=== PATIENT | female | born 1955 | race Caucasian/White ===

== ENCOUNTER → 2016-06-29 | Day surgery (SDC) | payer OTHER ==
[~2016-06-29] MED LIST: ATORVASTATIN CA20 MG PO; CITALOPRAM HYDR10 MG PO; COZAAR50 M1 PO; ECOTRIN81 MG PO; FISH OIL500 MG PO; MULTIVITAMIN1 TAB PO; OMEGA 31000 MG PO
--- NOTE | 2016-06-29 15:03 | Operative Report ---
Operative/Inv Procedure Report Surgery Date: 06/29/16 Name of Procedure: Cystocopy and TURBT Pre-Operative Diagnosis: r/o recurrent bladder tumor Post-Operative Diagnosis: same Estimated Blood Loss: less than 50ml Surgeon/Charge Account Clerk: HANK Montelongo MD,MAGI Booker Anesthesia: general endotracheal tube Drains: 20 fr mathews Specimens: bladder tumor chips Complications: none Condition: stable Operative Indication: Assess for recurrent bladder tumor Operative/Procedure Note Note: The patient was taken to the cystoscopy room and identified. She was placed in supine position on the cystoscopy table. Timeout was executed appropriately with the patient awake. Gen. anesthesia was induced via an endotracheal tube. She was placed in dorsal lithotomy position and bimanual rectal exam revealed no abnormal pelvic masses. She was prepped and draped in usual fashion for cystoscopy. Surgical pause was executed appropriately. The 22 Beninese cystoscope sheath was placed into the bladder and cystoscopy performed. On the right lateral wall that was irregular mucosa. The remainder of the bladder appeared normal. Both ureteral orifices were normal in appearance. The bladder was left full and the cystoscope removed. A 26 Beninese resectoscope sheath was placed in the bladder. The working element was inserted and the irregular mucosa on the right lateral bladder wall was resected completely. The [employer] evacuator was used to remove all bladder tumor chips from the bladder. The base of the resection was fulgurated with electrocautery and no significant bleeding was noted. The bladder was left full and a 20 Beninese two-way Mathesw catheter inserted. Patient tolerated the procedure well and as completion was taken to recovery room in stable condition. Findings: Irregular mucosa on the right lateral bladder wall Discharge Disposition: PACU
== END ==
LOC: STS 00:58
DX: C80.1 Malignant (primary) neoplasm, unspecified (principal); Z85.51 Personal history of malignant neoplasm of bladder; I10 Essential (primary) hypertension; Z79.82 Long term (current) use of aspirin
CPT/HCPCS: 88307; J0690; J1100; J2250; J2405

== ENCOUNTER 2017-06-18 17:39 | Inpatient (IN) | payer OTHER ==
[~2017-06-18] VITALS: Ht 160 cm; Wt 63.5 kg
--- NOTE | 2017-06-18 19:29 | ED DYSPNEA/ASTHMA COMPLAINT ---
History of Present Illness General Chief Complaint: General Adult Stated Complaint: INCREASED HR VIA AMBULATING, SOB HX CANCER Source: patient, family Exam Limitations: no limitations Vital Signs & Intake/Output Vital Signs & Intake/Output Vital Signs Date Time Temp Pulse Resp B/P B/P Pulse O2 O2 Flow FiO2 Mean Ox Delivery Rate 06/18 2202 98.5 92 16 129/63 97 Room Air 06/18 2103 98 14 149/69 97 Room Air 06/18 2021 94 14 135/65 99 Room Air 06/18 1904 Room Air 06/18 1758 98.3 99 20 131/77 100 Allergies Coded Allergies: NO KNOWN ALLERGIES (06/24/16) Triage Note: PER PT SENT FROM WALK IN FEELING WEAK AND RUN DOWN X 2 DAYS DENIES FEVER, NAUSEA OR VOMITING Triage Nurses Notes Reviewed? yes Onset: Abrupt Duration: day(s): (couple), constant Timing: recent history HPI: 61-year-old female who comes into the emergency room for further evaluation of some shortness of breath and feeling like her heart is beating fast. Daughter is used for translation. She reports that when she walks her heart rate comes up to 1:30 and she feels winded. She has no associated fever chills coughing chest pain or dizziness. There is been no syncopal episodes. She underwent chemotherapy recently that ended in early May 2017 secondary to bladder CA. She had some lymph node involvement and a bladder resection. (Ernesto FARAH,Raudel) Reconcile Medications Alprazolam 0.5 MG TABLET 1 TAB PO PRN ANXIETY (Reported) Aspirin (Ecotrin*) 81 MG TABLET.DR 1 TAB PO DAILY HEART/BLOOD (Reported) Citalopram Hydrobromide (Citalopram HBr) 40 MG TABLET 1 TAB PO DAILY MENTAL HEALTH (Reported) Losartan Potassium 50 MG TABLET 1 TAB PO DAILY BP (Reported) (Cesar KOENIG,Cal Crow) Past History Travel History Traveled to [place] past 21 day No Medical History Any Pertinent Medical History? see below for history Neurological: NONE EENT: NONE Cardiovascular: hypertension Respiratory: NONE Gastrointestinal: NONE Hepatic: NONE Renal: NONE Musculoskeletal: NONE Psychiatric: NONE Endocrine: NONE History of MRSA: No History of VRE: No History of CDIFF: No Surgical History Surgical History: non-contributory Psychosocial History Services at Home None What is your primary language Armenian Tobacco Use: Never used Family History Family History, If Any: FATHER FH: arrhythmia FH: heart disease Hx Contributory? No (Raudel Fofana) Review of Systems Review of Systems Constitutional: Reports: no symptoms. EENTM: Reports: no symptoms. Respiratory: Reports: see HPI. Cardiovascular: Reports: see HPI. GI: Reports: no symptoms. Genitourinary: Reports: no symptoms. Musculoskeletal: Reports: no symptoms. Skin: Reports: no symptoms. Neurological/Psychological: Reports: no symptoms. Hematologic/Endocrine: Reports: no symptoms. Immunologic/Allergic: Reports: no symptoms. All Other Systems: Reviewed and Negative (Raudel Fofana) Physical Exam Physical Exam General Appearance: well developed/nourished, alert, awake Head: atraumatic, normal appearance Eyes: Bilateral: normal appearance, EOMI. Ears, Nose, Throat: normal ENT inspection, hearing grossly normal Neck: normal inspection Respiratory: normal breath sounds, no respiratory distress Cardiovascular: regular rate/rhythm, tachycardia Rectal: heme positive stool Extremities: normal inspection Neurologic/Psych: awake, alert, oriented x 3 Skin: intact, normal color Core Measures ACS in differential dx? Yes CVA/TIA Diagnosis No Sepsis Present: No Sepsis Focused Exam Completed? No (Raudel Fofana) Progress Differential Diagnosis: AMI, bronchitis, CHF, COPD, pericarditis, pulmonary embolism, pneumonia, pneumothorax, unstable angina Plan of Care: Orders Procedure Date/time Status Nothing by Mouth 06/19 B Active LEUKOCYTE POOR (PACKED CELLS) 06/18 2211 Active Patient Data 06/18 2208 Active Saline Lock 06/18 2155 Active Misc Message 06/18 215 Active ED Holding Orders 06/18 215 Active Admit to inpatient 06/18 215 Active Vital Signs 06/18 215 Active Code Status 06/18 215 Active Intake & Output 06/18 210 Active PARTIAL THROMBOPLASTIN TIME 06/18 2017 Complete PROTHROMBIN TIME 06/18 2017 Complete Add-on Test (ER Only) 06/18 2012 Active TYPE & SCREEN (NOT X-MATCH) 06/18 2012 Active MISTAKE 06/18 192 Active Telemetry/Test Rider 06/18 192 Active TROPONIN LEVEL 06/18 1927 Complete COMPREHENSIVE METABOLIC PANEL 06/18 1927 Complete CBC WITHOUT DIFFERENTIAL 06/18 1927 Complete EKG 06/18 1741 Active Laboratory Tests 06/18/172021: PT 10.5, INR 1.00, APTT 28 06/18/17 194: Anion Gap 13, Estimated GFR > 60, BUN/Creatinine Ratio 32.2 H, Glucose 112 H, Calcium 9.5, Total Bilirubin < 0.1 L, AST 18, ALT 27, Alkaline Phosphatase 71, Troponin I 0.11 *H, Total Protein 6.5, Albumin 3.8, Globulin 2.7, Albumin/ Globulin Ratio 1.4, CBC w Diff NO MAN DIFF REQ, RBC 2.54 L, MCV 75.7 L, MCH 24.4 L, RDW 14.7 H, MPV 6.8 L, Gran % 57.1, Lymphocytes % 33.1, Monocytes % 5.6, Eosinophils % 3.0, Basophils % 1.2, Absolute Granulocytes 2.7, Absolute Lymphocytes 1.6, Absolute Monocytes 0.3, Absolute Eosinophils 0.1, Absolute Basophils 0.1, PUBS MCHC 32.2 L Diagnostic Imaging: Viewed by Me: CT Scan. Discussed w/RAD: CT Scan. Radiology Impression: PATIENT: TRAVIS MCLEOD PRESENT AGE: 61 PATIENT ACCOUNT NO: [id number] : 56 LOCATION: [facility] ORDERING PHYSICIAN: Raudel FARAH SERVICE DATE: 06/18/17 EXAM TYPE : CAT - CT ABD & PELVIS W IV CONTRAST; CTA CHEST-PULMONARY EMBOLISM EXAMINATION: 1. CTA chest: 2. CT ABDOMEN AND PELVIS WITH CONTRAST CLINICAL INFORMATION: History of bladder cancer. Anemic. Rectal bleeding. COMPARISON: None. TECHNIQUE: A noncontrast localizer was performed, followed by the administration of 125 mL Optiray [address] of the chest was then performed. Coronal and sagittal reformatted and 3-D technique MIP images of the chest were completed at the CT scanner and reviewed on the PACS workstation. No adverse effects were reported. Images were then performed through the abdomen and pelvis. Coronal and sagittal reformatted images performed at CT scanner by technologist. DLP: 517.52 mGy-cm. FINDINGS: 1. CTA CHEST; VASCULAR: The main pulmonary artery, secondary and tertiary branches of the pulmonary artery are normally opacified with no evidence of pulmonary embolism. The aorta and great vessels are unremarkable. MEDIASTINUM: There is mediastinal and hilar lymphadenopathy. Enlarged lymph node in the subcarina measures 1.2 cm AP. Prominent lymph nodes extends into the AP window and pretracheal retrovascular space and in both feli. LUNGS: The lungs are clear. No nodule or infiltrate. Central bronchial airways open. FLUID: There is no pericardial effusion. There is no pleural effusion. AXILLA: No significant lymphadenopathy. 2. CT SCAN ABDOMEN PELVIS: LIVER, GALLBLADDER, AND BILIARY TREE: The liver is normal in size, shape, and attenuation. No focal hepatic lesion or biliary ductal dilatation is present. The gallbladder is unremarkable with no evidence of radiopaque gallstones, gallbladder wall thickening, or obvious pericholecystic inflammatory changes. PANCREAS: Unremarkable. SPLEEN: Unremarkable. ADRENAL GLANDS: No significant adenopathy in the abdomen or pelvis. KIDNEYS AND URETERS: The kidneys are normal in size, shape, and attenuation. No hydronephrosis, hydroureter, or calculi seen. No perinephric stranding. 7 mm cortical cyst at lower pole right kidney. BLADDER: Status post resection. GASTROINTESTINAL TRACT: There is a urinary ostomy right anterior abdominal wall without inflammation or obstruction. Small bowel anastomosis in the right lower quadrant. No acute change of the bowel. No bowel obstruction. No bowel wall thickening or edema. Moderate volume of stool in the colon. The appendix is not seen. No inflammation the mesentery. ABDOMINAL WALL: No significant hernia is appreciated. LYMPH NODES: Normal. VASCULAR: Unremarkable. PELVIC VISCERA: Uterus is absent. OSSEOUS STRUCTURES: Unremarkable. IMPRESSION: 1. CTA CHEST: No evidence of pulmonary embolism. There is bilateral hilar and mediastinal adenopathy. 2. CT ABDOMEN PELVIS: Status post urinary ostomy with bladder resection. No acute abnormality CT scan abdomen and pelvis. DICTATED BY: Gurvinder Gamez MD DATE/TIME DICTATED:06/18/172110 FLAT SHEET MAKER:ISAREL DATE/ TIME TRANSCRIBED:06/18/172110 CONFIDENTIAL, DO NOT COPY WITHOUT APPROPRIATE AUTHORIZATION. <Electronically signed in Other Vendor System> SIGNED BY: Gurvinder Gamez MD 06/18/172130 Initial ED EKG: normal sinus rhythm, rate (98), borderline T-wave abnormalities (Raudel Fofana) Departure Departure Disposition: STILL A PATIENT Condition: Stable Referrals: Racquel Martin APRN (PCP/Family) Departure Forms: Customer Survey General Discharge Information (Raudel Fofana) Departure Clinical Impression Primary Impression: Symptomatic anemia Secondary Impressions: Elevated troponin Comments 06/18/17, 22:00... discussed with dr. pires who will evaluate patient in AM and affirms plan for serial trops/ekg Admission Note Spoke With: Joseph KOENIG,[facility] Documentation of Exam: Documentation of any treatments & extenuating circumstances including Concerns Regarding Discharge (functional status, medication knowledge or non-compliance, living conditions, etc.) that warrant an admission rather than observation: pt with stage iv bladder cancer, symptomatic anemia, elevated troponin, likely supply demand... pt merits serial trops, cards eval in AM, blood transfusion. no aspirin since likely supply demand from low hgb. PA/SPEEDBOAT OPERATOR Co-Sign Statement Statement: ED Attending supervision documentation- [x] I saw and evaluated the patient. I have also reviewed all the pertinent lab results and diagnostic results. I agree with the findings and the plan of care as documented in the PA's/SPEEDBOAT OPERATOR's documentation. 06/18/17, 20:02... pt with low hgb, symptomatic, otherwise benign exam... merits blood tx, serial hct. [] I have reviewed the ED Record and agree with the PA's/SPEEDBOAT OPERATOR's documentation. [] Additions or exceptions (if any) to the PAs/SPEEDBOAT OPERATOR's note and plan are summarized below: [] (Cesar KOENIG,Cal Crow) Critical Care Note Critical Care Note Critical Care Time: 30-74 min (45) (Raudel Fofana)
[2017-06-18 19:52] LABS: ABSOLUTE EOSINOPHIL COUNT 0.1 /CUMM (0.0-0.7)
[2017-06-18 19:55] LABS: ABSOLUTE BASOPHIL COUNT 0.1 /CUMM (0.0-0.2); ABSOLUTE GRANULOCYTE CT 2.7 /CUMM (1.4-6.5); ABSOLUTE LYMPH COUNT 1.6 /CUMM (1.2-3.4); ABSOLUTE MONOCYTE COUNT 0.3 /CUMM (0.10-0.60); BASOPHIL % 1.2 % (0.0-2.0); GRANULOCYTE % 57.1 % (42.2-75.2); MEAN CORPUSCULAR HGB 24.4 PG (27.0-31.0); MEAN CORPUSCULAR HGB CONC 32.2 G/DL (33.0-37.0); MEAN CORPUSCULAR VOLUME 75.7 FL (81.0-99.0); MEAN PLATELET VOLUME 6.8 FL (7.4-10.4); PLATELET COUNT 406 /CUMM (130-400); RBC DISTRIBUTION WIDTH 14.7 % (11.5-14.5); RED BLOOD CELL CT 2.54 /CUMM (4.20-5.40); WHITE BLOOD CELL COUNT 4.7 /CUMM (4.8-10.8)
[2017-06-18 20:06] LABS: HEMATOCRIT 19.2 % (37-47)
[2017-06-18 20:39] LABS: PT 10.5 SEC (9.4-12.5); PTT 28 SEC (25-37)
[2017-06-18] MEDS ORDERED: CITALOPRAM HBR40 MG PO (21:24)
[2017-06-18] MEDS ORDERED: LOSARTAN POTASS50 M1 PO (21:25)
[2017-06-18] MEDS ORDERED: ASPIRIN EC81 M1 PO (21:25)
[2017-06-18] MEDS ORDERED: ALPRAZOLAM0.5 M4 PO (21:29)
--- NOTE | 2017-06-18 21:31 | CT SCAN REPORT ---
EXAMINATION: 1. CTA chest: 2. CT ABDOMEN AND PELVIS WITH CONTRAST CLINICAL INFORMATION: History of bladder cancer. Anemic. Rectal bleeding. COMPARISON: None. TECHNIQUE: A noncontrast localizer was performed, followed by the administration of 125 mL Optiray [address] of the chest was then performed. Coronal and sagittal reformatted and 3-D technique MIP images of the chest were completed at the CT scanner and reviewed on the PACS workstation. No adverse effects were reported. Images were then performed through the abdomen and pelvis. Coronal and sagittal reformatted images performed at CT scanner by technologist. DLP: 517.52 mGy-cm. FINDINGS: 1. CTA CHEST; VASCULAR: The main pulmonary artery, secondary and tertiary branches of the pulmonary artery are normally opacified with no evidence of pulmonary embolism. The aorta and great vessels are unremarkable. MEDIASTINUM: There is mediastinal and hilar lymphadenopathy. Enlarged lymph node in the subcarina measures 1.2 cm AP. Prominent lymph nodes extends into the AP window and pretracheal retrovascular space and in both feli. LUNGS: The lungs are clear. No nodule or infiltrate. Central bronchial airways open. FLUID: There is no pericardial effusion. There is no pleural effusion. AXILLA: No significant lymphadenopathy. 2. CT SCAN ABDOMEN PELVIS: LIVER, GALLBLADDER, AND BILIARY TREE: The liver is normal in size, shape, and attenuation. No focal hepatic lesion or biliary ductal dilatation is present. The gallbladder is unremarkable with no evidence of radiopaque gallstones, gallbladder wall thickening, or obvious pericholecystic inflammatory changes. PANCREAS: Unremarkable. SPLEEN: Unremarkable. ADRENAL GLANDS: No significant adenopathy in the abdomen or pelvis. KIDNEYS AND URETERS: The kidneys are normal in size, shape, and attenuation. No hydronephrosis, hydroureter, or calculi seen. No perinephric stranding. 7 mm cortical cyst at lower pole right kidney. BLADDER: Status post resection. GASTROINTESTINAL TRACT: There is a urinary ostomy right anterior abdominal wall without inflammation or obstruction. Small bowel anastomosis in the right lower quadrant. No acute change of the bowel. No bowel obstruction. No bowel wall thickening or edema. Moderate volume of stool in the colon. The appendix is not seen. No inflammation the mesentery. ABDOMINAL WALL: No significant hernia is appreciated. LYMPH NODES: Normal. VASCULAR: Unremarkable. PELVIC VISCERA: Uterus is absent. OSSEOUS STRUCTURES: Unremarkable. IMPRESSION: 1. CTA CHEST: No evidence of pulmonary embolism. There is bilateral hilar and mediastinal adenopathy. 2. CT ABDOMEN PELVIS: Status post urinary ostomy with bladder resection. No acute abnormality CT scan abdomen and pelvis.
--- NOTE | 2017-06-18 22:01 | History & Physical ---
Shaka KOENIG,[facility] 06/18/17 2201: General Information and HPI MD Statement: I have seen and personally examined TRAVIS MCLEOD and documented this H&P. The patient is a 61 year old F who presented with a patient stated chief complaint of [exertional shortness of breath and palpitations]. Source of Information: patient, family Exam Limitations: language barrier History of Present Illness: Ms. Mcleod is 61-year-old lady with past medical history significant for hypertension, osteoarthritis, anxiety/depression and metastatic bladder cancer( status post bladder resection in 2016, currently undergoing chemotherapy) presents with exertional shortness of breath and palpitations. Most of the history was obtained from patient's daughter who states that the patient has been feeling short of breath for a couple of weeks but has worsened for the past 3 days now. She gets short of breath even after taking a few steps and her heart rate goes up to around 130. Patient reports having palpitations. She went to her PCP today for further evaluation, but was sent to the ER. Per the daughter, patient's H&H has been on the lower side since starting the chemotherapy and had required blood transfusions in February for low hemoglobin but she has never felt this weak and short of breath. Patient has not had any workup done for anemia in the past. She does not take any iron supplements at home and is on Neupogen while on chemotherapy. Also reports constipation, occasional cough and new temporal headache with exertion. She denies any associated chest pain, lightheadedness/dizziness, syncopal episodes, hemoptysis or blood in stools/urine. She noticed some change in the color of her stools but attributes that to the different kind of teas she takes at home. She follows up with an oncologist at [facility]. Her last chemotherapy session was in May [address] scan chest, abdomen and pelvis done every 3 months for bladder cancer metastasis to lung and lymph nodes. Last CAT scan done in May showed a decrease in size of the lymph nodes. Allergies/Medications Allergies: Coded Allergies: NO KNOWN ALLERGIES (06/24/16) Home Med list Alprazolam 0.5 MG TABLET 1 TAB PO PRN ANXIETY (Reported) Aspirin (Ecotrin*) 81 MG TABLET.DR 1 TAB PO DAILY HEART/BLOOD (Reported) Citalopram Hydrobromide (Citalopram HBr) 40 MG TABLET 1 TAB PO DAILY MENTAL HEALTH (Reported) Losartan Potassium 50 MG TABLET 1 TAB PO DAILY BP (Reported) Past History Travel History Traveled to [place] past 21 day No Medical History Neurological: NONE EENT: NONE Cardiovascular: hypertension Respiratory: NONE Gastrointestinal: NONE Hepatic: NONE Renal: NONE Musculoskeletal: osteoarthritis Psychiatric: NONE Endocrine: NONE Cancer(s): bladder cancer History of MRSA: No History of VRE: No History of CDIFF: No Surgical History Surgical History: hysterectomy (2017), Bladder Resection s/p Urostomy tube Past Family/Social History Family History Relations & Conditions if any FATHER FH: arrhythmia FH: heart disease Psychosocial History Where do you live? Home Services at Home: None Smoking Status: Never Smoked ETOH Use: denies use Illicit Drug Use: denies illicit drug use Functional Ability ADLs Independent: dressing, eating, toileting, bathing. Ambulation: independent IADLs Independent: shopping, housework, finances, food prep, telephone, transportation , medication admin. Review of Systems Review of Systems Constitutional: Reports: weakness. EENTM: Reports: no symptoms. Cardiovascular: Reports: palpitations. Respiratory: Reports: cough, short of breath. GI: Reports: constipation. Genitourinary: Reports: no symptoms. Musculoskeletal: Reports: no symptoms. Skin: Reports: no symptoms. Neurological/Psychological: Reports: no symptoms. Hematologic/Endocrine: Reports: no symptoms. Immunologic/Allergic: Reports: no symptoms. All Other Systems: Reviewed and Negative Exam & Diagnostic Data Last 24 Hrs of Vital Signs/I&O Vital Signs Date Time Temp Pulse Resp B/P B/P Pulse O2 O2 Flow FiO2 Mean Ox Delivery Rate 06/19 0038 98.4 92 20 160/72 100 Room Air 06/18 2332 Room Air 06/18 2203 98.5 92 16 129/63 97 Room Air 06/18 2103 98 14 149/69 97 Room Air 06/18 202 94 14 135/65 99 Room Air 06/18 1904 Room Air 06/18 1758 98.3 99 20 131/77 100 Intake & Output 06/19 0800 06/19 0000 06/18 1600 Intake Total Output Total 240 Balance -240 Output, Urine 240 Patient 140 lb Weight Weight Reported by Patient Measurement Method Physical Exam General Appearance Alert, Oriented X3, Cooperative, No Acute Distress, Pale Skin No Rashes, No Breakdown HEENT Atraumatic, PERRLA, EOMI, Mucous Membr. moist/pink, Pale Conjucntiva Neck Supple, No JVD, No thryomegaly, No LAD Lungs Clear to Auscultation, Normal Air Movement Abdomen Normal Bowel Sounds, Soft, No Tenderness, Urostomy Tube Intact with clear urine Neurological Normal Speech, Strength at 5/5 X4 Ext, Normal Tone, Sensation Intact Extremities No Clubbing, No Cyanosis, No Edema, Normal Pulses Last 24 Hrs of Labs/John: Laboratory Tests 06/18/172021: PT 10.5, INR 1.00, APTT 28 06/18/171939: Anion Gap 13, Estimated GFR > 60, BUN/Creatinine Ratio 32.2 H, Glucose 112 H, Calcium 9.5, Total Bilirubin < 0.1 L, AST 18, ALT 27, Alkaline Phosphatase 71, Troponin I 0.11 *H, Total Protein 6.5, Albumin 3.8, Globulin 2.7, Albumin/ Globulin Ratio 1.4, CBC w Diff NO MAN DIFF REQ, RBC 2.54 L, MCV 75.7 L, MCH 24.4 L, RDW 14.7 H, MPV 6.8 L, Gran % 57.1, Lymphocytes % 33.1, Monocytes % 5.6, Eosinophils % 3.0, Basophils % 1.2, Absolute Granulocytes 2.7, Absolute Lymphocytes 1.6, Absolute Monocytes 0.3, Absolute Eosinophils 0.1, Absolute Basophils 0.1, PUBS MCHC 32.2 L Diagnostic Data EKG Results Sinus Rhythm with PACs and LVH Other Results CT ABD & PELVIS W IV CONTRAST; CTA CHEST-PULMONARY EMBOLISM IMPRESSION: 1. CTA CHEST: No evidence of pulmonary embolism. There is bilateral hilar and mediastinal adenopathy. 2. CT ABDOMEN PELVIS: Status post urinary ostomy with bladder resection. No acute abnormality CT scan abdomen and pelvis. Assessment/Plan Assessment: Ms. Mcleod is 61-year-old lady with past medical history significant for hypertension, osteoarthritis, anxiety/depression and metastatic bladder cancer( status post bladder resection in 2017, currently undergoing chemotherapy) presents with exertional shortness of breath and palpitations. A/P 1. Symptomatic anemia; - We will admit the patient to Telemetry floor. - Will transfuse 1 unit of blood and monitor CBC - Stools are guaiac positive - Hold aspirin for now - GI consult - Orthostatic vitals are negative - Oral PPI 40 mg daily - Oncology consult 2. Positive troponins; likely demand ischemia - Will trend troponins and EKG - Cardiology consult - Echocardiogram 3. Hypertension, anxiety/depression; - Continue home medications. DVT prophylaxis; ALPS only(patient has guaiac positive stools and symptomatic anemia) Patient is full code As Ranked By This Provider Problem List: 1. Symptomatic anemia 2. Elevated troponin Core Measures/Misc (02/21) Acute Coronary Syndrome ACS Diagnosis: No Congestive Heart Failure Congestive Heart Failure Diagnosis No Cerebrovascular Accident CVA/TIA Diagnosis: No VTE (View Protocol) VTE Risk Factors Cancer/chemo/othr therapy No Mechanical VTE Prophylaxis d/t N/A MechProphylax Ordered No VTE Pharm Prophylaxis d/t Medical Contraindication Sepsis (View protocol) Sepsis Present: No Kale KOENIG,[facility] 06/19/17 0124: Resident Review Statement Resident Statement: examined this patient, discussed with test engineering intern, agreed with test engineering intern Other Findings: Ms. Mcleod a 61-year-old lady with past medical history significant for bladder cancer diagnosed at [facility] status post bladder removal and urostomy , chemotherapy last round April 2017 who presented to ED with chief complaint of shortness of breath. Problem list #Anemia acute on chronic baseline in May hemoglobin 9 #Elevated troponin with negative EKG #Hypertension #Bladder cancer stage IV status post resection and chemotherapy Plan -Admit to telemetry floor -Trend troponin and EKG -2 large-bore peripheral lines -Type and crossmatch -2 units of RBC was ordered by ED -Monitor CBC -Guaiac all stool -Anemia workup -Hold aspirin -Cardiology recommendation a.m. -Echocardiogram -Oncology recommendation in a.m. -PPI 40 mg by mouth daily -Clear liquids and advance as tolerated -Code full -DVT prophylaxis Winston Ruiz MD, [facility] 06/19/17 0350: Attending MD Review Statement Attending Statement Attending MD Statement: examined this patient, discuss w/resident/PA/SOLDERING INSPECTOR, agreed w/resident/PA/SOLDERING INSPECTOR, discussed with family, reviewed images, amended to note Attending Assessment/Plan: 61 yo [place]an speaking F with h/o HTN, depression, stage 4 bladder cancer (2016 ) s/p urinary ostomy with bladder resection and recent chemotherapy (FebMay 2017), pulmonary sarcoidosis, is sent in by PCP for evaluation of fatigue, exertional dyspnea and palpitations that has been gradually progressive over past 2 weeks and worse over past 3 days. Daughter is an RN who used to work at [employer]. Daughter reports that patient was anemic after 1st session of chemotherapy requiring PRBC (Feb 2017) at [facility]. Subsequently her H/H has been stable, last Hb was around 9.0 in May 2017. Patient denies any h/o melena, BRBPR, hematemesis or hematuria. No previous EGD or colonoscopy. Patient takes a baby aspirin (?given h/o arrhythmia in her father). She denies any other NSAID use. Patient was evaluated for cardiology clearance prior to bladder surgery, but has no underlying CAD or CHF. She does have a systolic murmur known at baseline. Vitals stable except for mild tachycardia. Exam: AAO, in no distress, pallor+, MMM, Neck supple, PERRL, Chest clear, Heart S1S2 regular, systolic murmur+, Abd soft, NT, right urostomy bag+, urine clear. LE: no edema. Labs: WBC 4.7, H/H 6.2/19.2, microcytic anemia, Plat 406, INR 1.0, BUN 29, glucose 112, trop 0.11. EKG: sius tachycardia, PAC's, LAD, Qtc 465. Rectal exam done in ER: guaiac positive stool. Orthostats were negative. CTA CAP: no PE, bilateral hilar and mediastinal adenopathy, status post urinary ostomy with bladder resection. Assessment and plan: 1. Acute on chronic anemia of blood loss (guaiac positive stool) and chemotherapy induced myelosuppression 2. Symptomatic anemia 3. Elevated troponin likely Type 2 NM 4. Stage 4 bladder cancer currently on chemo 5. [facility] lhypertension - Admit to Telemetry - Monitor for arrhythmias - Type and crossmatch, goal Hb > 8.0 - Two wide bore IV lines - Guaiac all stools, check iron studies, TSH, B12, folic acid, retic count. - Transfuse 2 units PRBC - Check CBC daily - Initiate PPI - Clear liquids for now - GI consult in AM - Serial EKG and trend troponin - Hold off aspirin - Obtain Echo and Cardio consult - Courtesy consult Oncology DVT ppx Alps. Full code.
[2017-06-19 00:38] VITALS: BP 160/72
--- NOTE | 2017-06-19 03:51 | Admission Certification ---
Admission Certification Certification Statement - As attending physician, I certify that at the time of - admission, based on clinical presentation, severity of - symptoms, need for further diagnostic testing and - therapeutic interventions, and risk of adverse outcomes - without in-hospital treatment, in my clinical assessment, - this patient requires an acute hospital stay for a minimum - of two nights or longer. I have also considered psychsocial - factors such as support system, advanced age, financial - issues, cognitive issues, and failed out-patient treatments, - past re-admission history, safety of patient, and lack of - compliance as applicable. Specific rationale supporting this admission is: Symptomatic anemia, acute on chronic anemia, elevated troponin - Type 2 VA.
[2017-06-19 08:46] LABS: ABSOLUTE BASOPHIL COUNT 0.1 /CUMM (0.0-0.2); ABSOLUTE EOSINOPHIL COUNT 0.2 /CUMM (0.0-0.7); ABSOLUTE GRANULOCYTE CT 2.5 /CUMM (1.4-6.5); ABSOLUTE LYMPH COUNT 1.1 /CUMM (1.2-3.4); ABSOLUTE MONOCYTE COUNT 0.2 /CUMM (0.10-0.60); BASOPHIL % 1.3 % (0.0-2.0); EOSINOPHIL % 3.9 % (0-5); GRANULOCYTE % 61.2 % (42.2-75.2); MEAN CORPUSCULAR HGB 26.5 PG (27.0-31.0); MEAN PLATELET VOLUME 6.7 FL (7.4-10.4); PLATELET COUNT 317 /CUMM (130-400); RBC DISTRIBUTION WIDTH 16.6 % (11.5-14.5); WHITE BLOOD CELL COUNT 4.1 /CUMM (4.8-10.8)
[2017-06-19 08:48] VITALS: BP 138/66
[2017-06-19 09:04] LABS: RED BLOOD CELL CT 3.49 /CUMM (4.20-5.40)
[2017-06-19 09:05] LABS: MEAN CORPUSCULAR VOLUME 80.1 FL (81.0-99.0)
--- NOTE | 2017-06-19 11:35 | PN- Att Addend ---
Attending Addendum Attending Brief Note Patient seen and examined. Lying comfortably in bed not in any distress. Family present at the bedside. Reports feeling monogenic. Denies chest pain or shortness of breath. Denies palpitations. Denies any bowel movements overnight. Denies any blood per rectum. Denies vaginal bleeding. No events overnight on telemetry monitoring. She is in sinus rhythm. Vital Signs Date Time Temp Pulse Resp B/P B/P Pulse O2 O2 Flow FiO2 Mean Ox Delivery Rate 06/19 0913 89 138/66 06/19 0848 97.6 89 18 138/66 97 Room Air 06/19 0038 98.4 92 20 160/72 100 Room Air 06/18 2332 Room Air 06/18 2203 98.5 92 16 129/63 97 Room Air 06/18 2103 98 14 149/69 97 Room Air 06/18 2022 94 14 135/65 99 Room Air 06/18 1904 Room Air 06/18 1758 98.3 99 20 131/77 100 General appearance: Not in any distress Heart: S1-S2 regular with no audible murmur Lungs: Good entry bilaterally, clear to auscultation Abdomen: Soft and nontender with normal bowel sounds Extremities: No pedal edema Skin: Intact with no rashes. Problems: 1. Acute on chronic anemia 2. Type II myocardial infarction brought about by anemia. 3. Stage IV bladder cancer. Last chemotherapy cycle was February 2017. Plan: -Hemoglobin level is improved appropriately for a change of PRBC. Monitor hemoglobin levels daily. -On account of her heme-positive stools she will require GI workup to rule out gastrointestinal bleeding as etiology of her anemia. -Please obtain records from her primary care provider regarding her previous hemoglobin levels. -On account of her positive troponins, I would recommend transfusion to keep hemoglobin greater than 8. -Cardiology consultation for evaluation of her type II W[place]. Underlying coronary artery disease will need to be considered as well. -DVT prophylaxis with bilateral compression devices. -Please obtain a formal oncology consult. Her baseline hemoglobin level needs to be established to determine if her presentation is due to an acute drop in her levels or more progressive in nature.
--- NOTE | 2017-06-19 11:48 | PN- Housestaff ---
Subjective Follow-up For: ANEMIA Subjective: Patient states that she feels ok. Is visiting with family. Review of Systems Constitutional: Reports: no symptoms. Respiratory: Reports: cough. Objective Last 24 Hrs of Vital Signs/I&O Vital Signs Date Time Temp Pulse Resp B/P B/P Pulse O2 O2 Flow FiO2 Mean Ox Delivery Rate 06/19 1446 98.8 84 20 122/58 96 Room Air 06/19 0913 89 138/66 06/19 0848 97.6 89 18 138/66 97 Room Air 06/19 0038 98.4 92 20 160/72 100 Room Air 06/18 2332 Room Air 06/18 2203 98.5 92 16 129/63 97 Room Air 06/18 2103 98 14 149/69 97 Room Air 06/18 2022 94 14 135/65 99 Room Air 06/18 1904 Room Air Intake & Output 06/19 1600 06/19 0800 06/19 0000 Intake Total 880 820 Output Total 650 240 Balance 880 170 -240 Intake, Blood 700 Product Intake, Oral 880 120 Output, Urine 650 240 Patient 140 lb Weight Weight Reported by Patient Measurement Method Physical Exam General Appearance: Alert, Oriented X3, Cooperative, No Acute Distress Cardiovascular: Regular Rate, Normal S1, Normal S2, No Murmurs Lungs: Clear to Auscultation Current Medications: Current Medications Sig/Michelle Start time Last Medication Dose Route Stop Time Status Admin Acetaminophen 650 MG Q6P PRN 06/18 2330 AC PO Citalopram 40 MG DAILY 06/19 1000 AC 06/19 Hydrobromide PO 0913 Losartan Potassium 50 MG DAILY 06/19 1000 AC 06/19 PO 0913 Omeprazole 40 MG DAILY AC 06/19 0700 AC 06/19 PO 0625 Last 24 Hrs of Lab/John Results Last 24 Hrs of Labs/Mics: Laboratory Tests 06/19/17 0820: Troponin I Cancelled 06/19/17 0820: Anion Gap 11, Estimated GFR > 60, BUN/Creatinine Ratio 25.6 H, Iron 86, TIBC 447, Ferritin 5.4 L, Troponin I 0.20 *H, Vitamin B12 485, Folate 13.3, TSH 3.760, CBC w Diff NO MAN DIFF REQ, RBC 3.49 L, MCV 80.1 L, MCH 26.5 L, RDW 16.6 H, MPV 6.7 L, Gran % 61.2, Lymphocytes % 27.8, Monocytes % 5.8, Eosinophils % 3.9, Basophils % 1.3, Absolute Granulocytes 2.5, Absolute Lymphocytes 1.1 L, Absolute Monocytes 0.2, Absolute Eosinophils 0.2, Absolute Basophils 0.1, PUBS MCHC 33.0, Retic Count 1.30 06/19/17 0810: Troponin I Cancelled 06/19/17 0210: Troponin I 0.21 *H 06/18/172021: PT 10.5, INR 1.00, APTT 28 06/18/170: Anion Gap 13, Estimated GFR > 60, BUN/Creatinine Ratio 32.2 H, Glucose 112 H, Calcium 9.5, Total Bilirubin < 0.1 L, AST 18, ALT 27, Alkaline Phosphatase 71, Troponin I 0.11 *H, Total Protein 6.5, Albumin 3.8, Globulin 2.7, Albumin/ Globulin Ratio 1.4, CBC w Diff NO MAN DIFF REQ, RBC 2.54 L, MCV 75.7 L, MCH 24.4 L, RDW 14.7 H, MPV 6.8 L, Gran % 57.1, Lymphocytes % 33.1, Monocytes % 5.6, Eosinophils % 3.0, Basophils % 1.2, Absolute Granulocytes 2.7, Absolute Lymphocytes 1.6, Absolute Monocytes 0.3, Absolute Eosinophils 0.1, Absolute Basophils 0.1, PUBS MCHC 32.2 L Assessment/Plan Assessment: Ms. Nicolas is 61-year-old lady with past medical history significant for hypertension, osteoarthritis, anxiety/depression and metastatic bladder cancer( status post bladder resection in 2017, currently undergoing chemotherapy) presents with exertional shortness of breath and palpitations. found to have anemia to 6.2. today 9.2. given [address] abdomen pelvis no bleeding source or collection cta chest no evidence PE. A/P 1. Symptomatic anemia; shortness of breath -iron studies show low ferritin, vit b and folate normal. - Stools are guaiac positive - Hold aspirin for now - GI consult states that patient should have upper and lower endoscopies - Orthostatic vitals are negative - Oral PPI 40 mg daily -heme onc attending Dr. Barbosa covering for 'ricardo caldwell and bobbi called regarding family's desire for heme workup before doing any invasive diagnostic procedures like upper or lower endoscopies. He asked that we communicate with family that he would recommend upper and lower endoscopies as well. Family decided that they would follow up with patient's outpatient oncologist and then do colo and endoscopy outpatient. If patient stable to go tomorrow in morning, family will do echo outpatient as well. 2. Positive troponins; likely demand ischemia - troponins trended down - Cardiology consult - Echocardiogram 3. Hypertension, anxiety/depression; - Continue home medications. DVT prophylaxis; ALPS only(patient has guaiac positive stools and symptomatic anemia) Patient is full code Problem List: 1. GI bleed 2. Symptomatic anemia Pain Ratin Pain Location: na Pain Goal: Remain pain free Pain Plan: na Tomorrow's Labs & Rationales: cbc bep
--- NOTE | 2017-06-19 14:20 | Cons- Gastroenterology ---
General Information and HPI Consulting Request Date of Consult: 06/19/17 Requested By: Joseph KOENIG,Blu Reason for Consult: Anemia Source of Information: patient, old records Exam Limitations: no limitations History of Present Illness: Ms. Nicolas is 61-year-old lady who has been feeling short of breath for a couple of weeks but has worsened for the past 3 days. She gets short of breath even after taking a few steps and her heart rate goes up to around 130. Patient reports having palpitations. No N/V/D. No obvious blood in stool. No GERD, or abdo pain. Past medical history significant for hypertension, osteoarthritis, anxiety/ depression and metastatic bladder cancer(status post bladder resection in 2017, currently undergoing chemotherapy). She takes ASA and tylenol. No NSAID's. She does not take any iron supplements at home and is on Neupogen while on chemotherapy. Her last chemotherapy session was in May [address] scan chest, abdomen and pelvis done every 3 months for bladder cancer metastasis to lung and lymph nodes. Last CAT scan done in May showed a decrease in size of the lymph nodes. General Appearance Alert, Oriented X3, Cooperative, No Acute Distress, Pale Skin No Rashes, No Breakdown HEENT Atraumatic, PERRLA, EOMI, Mucous Membr. moist/pink, Pale Conjucntiva Neck Supple, No JVD, No thryomegaly, No LAD Lungs Clear to Auscultation, Normal Air Movement Abdomen Normal Bowel Sounds, Soft, No Tenderness, Urostomy Tube Intact with clear urine Neurological Normal Speech, Strength at 5/5 X4 Ext, Normal Tone, Sensation Intact Extremities No Clubbing, No Cyanosis, No Edema, Normal Pulses Last 24 Hrs of Labs/John Allergies/Medications Allergies: Coded Allergies: NO KNOWN ALLERGIES (06/24/16) Home Med List: Alprazolam 0.5 MG TABLET 1 TAB PO PRN ANXIETY (Reported) Aspirin (Ecotrin*) 81 MG TABLET.DR 1 TAB PO DAILY HEART/BLOOD (Reported) Citalopram Hydrobromide (Citalopram HBr) 40 MG TABLET 1 TAB PO DAILY MENTAL HEALTH (Reported) Losartan Potassium 50 MG TABLET 1 TAB PO DAILY BP (Reported) Past History Travel History Traveled to [place] past 21 day No Medical History Blood Transfusion Hx: Yes Neurological: NONE EENT: NONE Cardiovascular: hypertension Respiratory: NONE Gastrointestinal: NONE Hepatic: NONE Renal: NONE Musculoskeletal: osteoarthritis Psychiatric: NONE Endocrine: NONE Blood Disorders: anemia Cancer(s): bladder cancer TECHNICAL PRODUCT MANAGER/Reproductive: NONE Surgical History Surgical History: hysterectomy (2017), Bladder Resection s/p Urostomy tube Family History Relations & Conditions If Any: FATHER FH: arrhythmia FH: heart disease Psychosocial History Where Do You Live? Home Services at Home: None Smoking Status: Never Smoked ETOH Use: denies use Illicit Drug Use: denies illicit drug use Functional Ability ADLs Independent: dressing, eating, toileting, bathing. Ambulation: independent IADLs Independent: shopping, housework, finances, food prep, telephone, transportation , medication admin. Exam & Diagnostic Data Vital Signs and I&O Vital Signs Date Time Temp Pulse Resp B/P B/P Pulse O2 O2 Flow FiO2 Mean Ox Delivery Rate 06/19 0913 89 138/66 06/19 0848 97.6 89 18 138/66 97 Room Air 06/19 0038 98.4 92 20 160/72 100 Room Air 06/18 2332 Room Air 06/18 2203 98.5 92 16 129/63 97 Room Air 06/18 2103 98 14 149/69 97 Room Air 06/18 2022 94 14 135/65 99 Room Air 06/18 1904 Room Air 06/18 1758 98.3 99 20 131/77 100 Intake & Output 06/19 1600 06/19 0400 06/18 1600 06/18 0400 06/17 1600 06/17 0400 Intake Total 820 Output Total 650 240 Balance 170 -240 Intake, Blood 700 Product Intake, Oral 120 Output, Urine 650 240 Patient 140 lb Weight Weight Reported by Patient Measurement Method Assessment/Plan Assessment/Recommendations: Patient is a 61 yr old lady who has just finsihed a course of chmeotherapy and is presenting with symptomatic anemis with a HCT of 19. This is not part of pancytopenia. No obvious risk factors althought taking ASA. No previous endscopic procedures despite being 61yrs old. No family history of colon Ca. Patient with likley slow GI bleed. Suggest colonscopy +/- EGD on Wednesday. for prep tomorrow. May take clear liquids today. No PO iron. Consult Acknowledgment - Thank you for your consult request.
[2017-06-19 14:46] VITALS: BP 122/58
--- NOTE | 2017-06-19 15:46 | Cons- Cardiology ---
General Information and HPI Consulting Request Date of Consult: 06/19/17 Requested By: Joseph KOENIG,Blu Reason for Consult: Elevated troponin Source of Information: patient, family Exam Limitations: language barrier History of Present Illness: The patient is a very nice 61-year-old female was past history is significant for hypertension, arthritis, metastatic bladder cancer, currently on chemotherapy, who presented with exertional shortness of breath, palpitations, and was noted to be profoundly anemic. The available history suggests that the patient had several weeks of worsening shortness of breath. When seen by her primary care physician, she was sent to the emergency him for anemia. According to the family, the patient had required transfusions over the last several months. There are no other obvious cardiovascular symptoms. The patient denies any chest discomfort, etc. At the moment, she is asymptomatic. I was asked see the patient for a minimally elevated troponin. The patient had previously seen Dr. Nye in 2013 but now follows for all of her cardiology associated issues in [place]. Allergies/Medications Allergies: Coded Allergies: NO KNOWN ALLERGIES (06/24/16) Home Med List: Alprazolam 0.5 MG TABLET 1 TAB PO PRN ANXIETY (Reported) Aspirin (Ecotrin*) 81 MG TABLET.DR 1 TAB PO DAILY HEART/BLOOD (Reported) Citalopram Hydrobromide (Citalopram HBr) 40 MG TABLET 1 TAB PO DAILY MENTAL HEALTH (Reported) Losartan Potassium 50 MG TABLET 1 TAB PO DAILY BP (Reported) Current Medications: Current Medications Sig/Michelle Start time Last Medication Dose Route Stop Time Status Admin Acetaminophen 650 MG Q6P PRN 06/18 2330 AC PO Citalopram 40 MG DAILY 06/19 1000 AC 06/19 Hydrobromide PO 0913 Losartan Potassium 50 MG DAILY 06/19 1000 AC 06/19 PO 0913 Omeprazole 40 MG DAILY AC 06/19 0700 AC 06/19 PO 0625 Past History Travel History Traveled to [place] past 21 day No Medical History Blood Transfusion Hx: Yes Neurological: NONE EENT: NONE Cardiovascular: hypertension Respiratory: NONE Gastrointestinal: NONE Hepatic: NONE Renal: NONE Musculoskeletal: osteoarthritis Psychiatric: NONE Endocrine: NONE Blood Disorders: anemia Cancer(s): bladder cancer THREAD MARKER/Reproductive: NONE Surgical History Surgical History: hysterectomy (2017), Bladder Resection s/p Urostomy tube Family History Relations & Conditions If Any: FATHER FH: arrhythmia FH: heart disease Psychosocial History Where Do You Live? Home Services at Home: None Smoking Status: Never Smoked ETOH Use: denies use Illicit Drug Use: denies illicit drug use Functional Ability ADLs Independent: dressing, eating, toileting, bathing. Ambulation: independent IADLs Independent: shopping, housework, finances, food prep, telephone, transportation , medication admin. Exam & Diagnostic Data Vital Signs and I&O Vital Signs Date Time Temp Pulse Resp B/P B/P Pulse O2 O2 Flow FiO2 Mean Ox Delivery Rate 06/19 1446 98.8 84 20 122/58 96 Room Air 06/19 0913 89 138/66 06/19 0848 97.6 89 18 138/66 97 Room Air 06/19 0038 98.4 92 20 160/72 100 Room Air 06/18 2332 Room Air 06/18 2203 98.5 92 16 129/63 97 Room Air 06/18 2103 98 14 149/69 97 Room Air 06/18 2022 94 14 135/65 99 Room Air 06/18 1904 Room Air 06/18 1758 98.3 99 20 131/77 100 Intake & Output 06/19 1600 06/19 0800 06/19 0000 06/18 1600 06/18 0800 06/18 0000 Intake Total 880 820 Output Total 650 240 Balance 880 170 -240 Intake, Blood 700 Product Intake, Oral 880 120 Output, Urine 650 240 Patient 140 lb Weight Weight Reported by Patient Measurement Method Physical Exam: General Appearance Alert, Oriented X3, Cooperative, No Acute Distress, Pale Skin normal HEENT Atraumatic, PERRLA, EOMI, Mucous Membr. moist/pink, Pale Conjucntiva Neck Supple, No JVD, No thryomegaly, carotids normal bilaterally Lungs Clear to Auscultation and percussion bilaterally Abdomen Normal Bowel Sounds, Soft, No Tenderness, Urostomy Tube Intact with clear urine Neurological Normal / nonfocal Extremities No Clubbing, No Cyanosis, No Edema, Normal Pulses Labs/John Results: Laboratory Tests 06/19 06/19 06/19 0820 0820 0810 Chemistry Sodium (137 - 145 mmol/L) 142 Potassium (3.5 - 5.1 mmol/L) 4.0 Chloride (98 - 107 mmol/L) 105 Carbon Dioxide (22 - 30 mmol/L) 26 Anion Gap (5 - 16) 11 BUN (7 - 17 mg/dL) 23 H Creatinine (0.5 - 1.0 mg/dL) 0.9 Estimated GFR (>60 ml/min) > 60 BUN/Creatinine Ratio (7 - 25 %) 25.6 H Iron (37 - 170 ug/dL) 86 TIBC (265 - 497 ug/dL) 447 Ferritin (11.1 - 264 ng/mL) 5.4 L Troponin I (< 0.11 ng/ml) Cancelled 0.20 *H Cancelled Vitamin B12 (239 - 931 pg/mL) 485 Folate (2.76 - 20.0 ng/mL) 13.3 TSH (0.270 - 4.200 uIU/mL) 3.760 Hematology CBC w Diff NO MAN DIFF REQ WBC (4.8 - 10.8 /CUMM) 4.1 L RBC (4.20 - 5.40 /CUMM) 3.49 L Hgb (12.0 - 16.0 G/DL) 9.2 L Hct (37 - 47 %) 28.0 L MCV (81.0 - 99.0 FL) 80.1 L MCH (27.0 - 31.0 PG) 26.5 L RDW (11.5 - 14.5 %) 16.6 H Plt Count (130 - 400 /CUMM) 317 MPV (7.4 - 10.4 FL) 6.7 L Gran % (42.2 - 75.2 %) 61.2 Lymphocytes % (20.5 - 51.1 %) 27.8 Monocytes % (1.7 - 9.3 %) 5.8 Eosinophils % (0 - 5 %) 3.9 Basophils % (0.0 - 2.0 %) 1.3 Absolute Granulocytes (1.4 - 6.5 /CUMM) 2.5 Absolute Lymphocytes (1.2 - 3.4 /CUMM) 1.1 L Absolute Monocytes (0.10 - 0.60 /CUMM) 0.2 Absolute Eosinophils (0.0 - 0.7 /CUMM) 0.2 Absolute Basophils (0.0 - 0.2 /CUMM) 0.1 PUBS MCHC (33.0 - 37.0 G/DL) 33.0 Retic Count (0.5 - 2.0 %) 1.30 06/19 Chemistry Sodium (137 - 145 mmol/L) 142 Potassium (3.5 - 5.1 mmol/L) 3.7 Chloride (98 - 107 mmol/L) 103 Carbon Dioxide (22 - 30 mmol/L) 26 Anion Gap (5 - 16) 13 BUN (7 - 17 mg/dL) 29 H Creatinine (0.5 - 1.0 mg/dL) 0.9 Estimated GFR (>60 ml/min) > 60 BUN/Creatinine Ratio (7 - 25 %) 32.2 H Glucose (65 - 99 mg/dL) 112 H Calcium (8.4 - 10.2 mg/dL) 9.5 Total Bilirubin (0.2 - 1.3 mg/dL) < 0.1 L AST (14 - 36 U/L) 18 ALT (9 - 52 U/L) 27 Alkaline Phosphatase (<127 U/L) 71 Troponin I (< 0.11 ng/ml) 0.21 *H 0.11 *H Total Protein (6.3 - 8.2 g/dL) 6.5 Albumin (3.5 - 5.0 g/dL) 3.8 Globulin (1.9 - 4.2 gm/dL) 2.7 Albumin/Globulin Ratio (1.1 - 2.2 %) 1.4 Coagulation PT (9.4 - 12.5 SEC) 10.5 INR (0.90 - 1.19) 1.00 APTT (25 - 37 SEC) 28 Hematology CBC w Diff NO MAN DIFF REQ WBC (4.8 - 10.8 /CUMM) 4.7 L RBC (4.20 - 5.40 /CUMM) 2.54 L Hgb (12.0 - 16.0 G/DL) 6.2 *L Hct (37 - 47 %) 19.2 *L MCV (81.0 - 99.0 FL) 75.7 L MCH (27.0 - 31.0 PG) 24.4 L RDW (11.5 - 14.5 %) 14.7 H Plt Count (130 - 400 /CUMM) 406 H MPV (7.4 - 10.4 FL) 6.8 L Gran % (42.2 - 75.2 %) 57.1 Lymphocytes % (20.5 - 51.1 %) 33.1 Monocytes % (1.7 - 9.3 %) 5.6 Eosinophils % (0 - 5 %) 3.0 Basophils % (0.0 - 2.0 %) 1.2 Absolute Granulocytes (1.4 - 6.5 /CUMM) 2.7 Absolute Lymphocytes (1.2 - 3.4 /CUMM) 1.6 Absolute Monocytes (0.10 - 0.60 /CUMM) 0.3 Absolute Eosinophils (0.0 - 0.7 /CUMM) 0.1 Absolute Basophils (0.0 - 0.2 /CUMM) 0.1 PUBS MCHC (33.0 - 37.0 G/DL) 32.2 L Diagnostic Data EKG Results Normal sinus rhythm with no significant abnormalities Assessment/Plan Assessment/Plan Assessment: 1. Minimally elevated troponin consistent with type II HI 2. Acute on chronic symptomatic anemia with guaiac positive stool and recent chemotherapy 3. Stage IV bladder cancer currently on chemotherapy 4. Hypertension Recommendations: -Keep the patient on imcu nurse for now -Echocardiogram to rule out all motion abnormalities and assess ventricular and valvular function -Consider hematology/oncology input -GI input noted -Further plans after above. -For now, no further cardiac evaluation indicated. Consult Acknowledgment - Thank you for your consult request.
[2017-06-19 22:32] VITALS: BP 120/62
[2017-06-20 07:09] VITALS: BP 118/66
[2017-06-20 08:02] LABS: ABSOLUTE BASOPHIL COUNT 0.1 /CUMM (0.0-0.2); ABSOLUTE EOSINOPHIL COUNT 0.2 /CUMM (0.0-0.7); ABSOLUTE LYMPH COUNT 1.3 /CUMM (1.2-3.4); ABSOLUTE MONOCYTE COUNT 0.3 /CUMM (0.10-0.60); BASOPHIL % 1.5 % (0.0-2.0); EOSINOPHIL % 4.4 % (0-5); GRANULOCYTE % 52.8 % (42.2-75.2); HEMATOCRIT 27.1 % (37-47); MEAN CORPUSCULAR HGB 26.2 PG (27.0-31.0); MEAN CORPUSCULAR VOLUME 79.3 FL (81.0-99.0); MEAN PLATELET VOLUME 6.9 FL (7.4-10.4); PLATELET COUNT 326 /CUMM (130-400); RED BLOOD CELL CT 3.42 /CUMM (4.20-5.40); WHITE BLOOD CELL COUNT 3.7 /CUMM (4.8-10.8)
--- NOTE | 2017-06-20 10:23 | PN- Att Addend ---
Attending Addendum Attending Brief Note Patient seen and examined. Resting comfortably not in any acute distress. No issues overnight. No events on telemetry monitoring. Remains in sinus rhythm with occasional sinus bradycardia. Denies chest pain or shortness of breath. Denies palpitations. Denies diarrhea. She had a bowel movement yesterday and stools were heme positive. Patient would like to continue care with her providers at [facility]. She does not want to undergo any endoscopic evaluation here at [facility]. Vital Signs Date Time Temp Pulse Resp B/P B/P Pulse O2 O2 Flow FiO2 Mean Ox Delivery Rate 06/20 0916 96 118/66 06/20 0800 97 Room Air 06/20 0709 98.6 87 18 118/66 97 Room Air 06/19 2232 98.8 82 20 120/62 97 Room Air 06/19 1446 98.8 84 20 122/58 96 Room Air General appearance: Well-developed, not in any distress Heart: S1-S2 regular with 2/6 diastolic murmur. Lungs: Clear to auscultation bilaterally Abdomen: Soft and nontender normal bowel sounds Extremities: No pedal edema. Laboratory Tests 06/20/17 0705: Anion Gap 10, Estimated GFR > 60, BUN/Creatinine Ratio 23.3, CBC w Diff NO MAN DIFF REQ, RBC 3.42 L, MCV 79.3 L, MCH 26.2 L, RDW 16.0 H, MPV 6.9 L, Gran % 52.8, Lymphocytes % 33.8, Monocytes % 7.5, Eosinophils % 4.4, Basophils % 1.5, Absolute Granulocytes 2.0, Absolute Lymphocytes 1.3, Absolute Monocytes 0.3, Absolute Eosinophils 0.2, Absolute Basophils 0.1, PUBS MCHC 33.0 Problems: 1. Acute on chronic anemia 2. Type II myocardial infarction brought about by anemia. 3. Stage IV bladder cancer. Last chemotherapy cycle was February 2017. Plan: -Monitor overnight. If her hemoglobin level is stable patient may be discharged home to follow-up with her providers at [facility]. -If she continues to show evidence of bleeding will consider transfer to [facility] for further management. -Troponin levels are trending now. She has no cardiac symptoms. She has had no events on awake overnight monitor. Follow-up with cardiology service regarding need for continued cardiac monitoring and ischemic workup upon discharge.
--- NOTE | 2017-06-20 14:44 | PN- Gastroenterology ---
Assessment/Plan Assessment/Recommendations: Patient is a 61 yr old lady who has just finsihed a course of chemotherapy and is presenting with symptomatic anemias with a HCT of 19. This is not part of pancytopenia. No obvious risk factors althought taking ASA. No previous endscopic procedures despite being 61yrs old. No family history of colon Ca. Patient with likley slow GI bleed. Suggest colonscopy +/- EGD on Wednesday, however patient would like all procedures to be done at [facility]. May advance diet. No PO iron. Patient at low risk of acute, large GI bleed. Subjective Subjective: a Objective Vital Signs and I&Os Samantha Signs Date Time Temp Pulse Resp B/P B/P Pulse O2 O2 Flow FiO2 Mean Ox Delivery Rate 06/20 0916 96 118/66 06/20 0800 97 Room Air 06/20 0709 98.6 87 18 118/66 97 Room Air 06/19 2232 98.8 82 20 120/62 97 Room Air 06/19 1446 98.8 84 20 122/58 96 Room Air Intake & Output 06/20 1600 06/20 0400 06/19 1600 06/19 0400 06/18 1600 06/18 0400 Intake Total 0880 696 7170 Output Total 600 650 240 Balance 1220 80 1050 -240 Intake, Blood 700 Product Intake, Oral 8104 622 4576 Output, Urine 600 650 240 Patient 140 lb Weight Weight Reported by Patient Measurement Method Results Pertinent Lab Results: a Laboratory Tests 06/20 06/20 06/19 1430 0705 0820 Chemistry Sodium (137 - 145 mmol/L) 142 Potassium (3.5 - 5.1 mmol/L) 4.2 Chloride (98 - 107 mmol/L) 104 Carbon Dioxide (22 - 30 mmol/L) 28 Anion Gap (5 - 16) 10 BUN (7 - 17 mg/dL) 21 H Creatinine (0.5 - 1.0 mg/dL) 0.9 Estimated GFR (>60 ml/min) > 60 BUN/Creatinine Ratio (7 - 25 %) 23.3 Troponin I Pending Cancelled Hematology CBC w Diff NO MAN DIFF REQ WBC (4.8 - 10.8 /CUMM) 3.7 L RBC (4.20 - 5.40 /CUMM) 3.42 L Hgb (12.0 - 16.0 G/DL) 8.9 L Hct (37 - 47 %) 27.1 L MCV (81.0 - 99.0 FL) 79.3 L MCH (27.0 - 31.0 PG) 26.2 L RDW (11.5 - 14.5 %) 16.0 H Plt Count (130 - 400 /CUMM) 326 MPV (7.4 - 10.4 FL) 6.9 L Gran % (42.2 - 75.2 %) 52.8 Lymphocytes % (20.5 - 51.1 %) 33.8 Monocytes % (1.7 - 9.3 %) 7.5 Eosinophils % (0 - 5 %) 4.4 Basophils % (0.0 - 2.0 %) 1.5 Absolute Granulocytes (1.4 - 6.5 /CUMM) 2.0 Absolute Lymphocytes (1.2 - 3.4 /CUMM) 1.3 Absolute Monocytes (0.10 - 0.60 /CUMM) 0.3 Absolute Eosinophils (0.0 - 0.7 /CUMM) 0.2 Absolute Basophils (0.0 - 0.2 /CUMM) 0.1 PUBS MCHC (33.0 - 37.0 G/DL) 33.0 06/19 06/19 06/19 0820 0810 0210 Chemistry Sodium (137 - 145 mmol/L) 142 Potassium (3.5 - 5.1 mmol/L) 4.0 Chloride (98 - 107 mmol/L) 105 Carbon Dioxide (22 - 30 mmol/L) 26 Anion Gap (5 - 16) 11 BUN (7 - 17 mg/dL) 23 H Creatinine (0.5 - 1.0 mg/dL) 0.9 Estimated GFR (>60 ml/min) > 60 BUN/Creatinine Ratio (7 - 25 %) 25.6 H Iron (37 - 170 ug/dL) 86 TIBC (265 - 497 ug/dL) 447 Ferritin (11.1 - 264 ng/mL) 5.4 L Troponin I (< 0.11 ng/ml) 0.20 *H Cancelled 0.21 *H Vitamin B12 (239 - 931 pg/mL) 485 Folate (2.76 - 20.0 ng/mL) 13.3 TSH (0.270 - 4.200 uIU/mL) 3.760 Hematology CBC w Diff NO MAN DIFF REQ WBC (4.8 - 10.8 /CUMM) 4.1 L RBC (4.20 - 5.40 /CUMM) 3.49 L Hgb (12.0 - 16.0 G/DL) 9.2 L Hct (37 - 47 %) 28.0 L MCV (81.0 - 99.0 FL) 80.1 L MCH (27.0 - 31.0 PG) 26.5 L RDW (11.5 - 14.5 %) 16.6 H Plt Count (130 - 400 /CUMM) 317 MPV (7.4 - 10.4 FL) 6.7 L Gran % (42.2 - 75.2 %) 61.2 Lymphocytes % (20.5 - 51.1 %) 27.8 Monocytes % (1.7 - 9.3 %) 5.8 Eosinophils % (0 - 5 %) 3.9 Basophils % (0.0 - 2.0 %) 1.3 Absolute Granulocytes (1.4 - 6.5 /CUMM) 2.5 Absolute Lymphocytes (1.2 - 3.4 /CUMM) 1.1 L Absolute Monocytes (0.10 - 0.60 /CUMM) 0.2 Absolute Eosinophils (0.0 - 0.7 /CUMM) 0.2 Absolute Basophils (0.0 - 0.2 /CUMM) 0.1 PUBS MCHC (33.0 - 37.0 G/DL) 33.0 Retic Count (0.5 - 2.0 %) 1.30 06/18 194 Chemistry Sodium (137 - 145 mmol/L) 142 Potassium (3.5 - 5.1 mmol/L) 3.7 Chloride (98 - 107 mmol/L) 103 Carbon Dioxide (22 - 30 mmol/L) 26 Anion Gap (5 - 16) 13 BUN (7 - 17 mg/dL) 29 H Creatinine (0.5 - 1.0 mg/dL) 0.9 Estimated GFR (>60 ml/min) > 60 BUN/Creatinine Ratio (7 - 25 %) 32.2 H Glucose (65 - 99 mg/dL) 112 H Calcium (8.4 - 10.2 mg/dL) 9.5 Total Bilirubin (0.2 - 1.3 mg/dL) < 0.1 L AST (14 - 36 U/L) 18 ALT (9 - 52 U/L) 27 Alkaline Phosphatase (<127 U/L) 71 Troponin I (< 0.11 ng/ml) 0.11 *H Total Protein (6.3 - 8.2 g/dL) 6.5 Albumin (3.5 - 5.0 g/dL) 3.8 Globulin (1.9 - 4.2 gm/dL) 2.7 Albumin/Globulin Ratio (1.1 - 2.2 %) 1.4 Coagulation PT (9.4 - 12.5 SEC) 10.5 INR (0.90 - 1.19) 1.00 APTT (25 - 37 SEC) 28 Hematology CBC w Diff NO MAN DIFF REQ WBC (4.8 - 10.8 /CUMM) 4.7 L RBC (4.20 - 5.40 /CUMM) 2.54 L Hgb (12.0 - 16.0 G/DL) 6.2 *L Hct (37 - 47 %) 19.2 *L MCV (81.0 - 99.0 FL) 75.7 L MCH (27.0 - 31.0 PG) 24.4 L RDW (11.5 - 14.5 %) 14.7 H Plt Count (130 - 400 /CUMM) 406 H MPV (7.4 - 10.4 FL) 6.8 L Gran % (42.2 - 75.2 %) 57.1 Lymphocytes % (20.5 - 51.1 %) 33.1 Monocytes % (1.7 - 9.3 %) 5.6 Eosinophils % (0 - 5 %) 3.0 Basophils % (0.0 - 2.0 %) 1.2 Absolute Granulocytes (1.4 - 6.5 /CUMM) 2.7 Absolute Lymphocytes (1.2 - 3.4 /CUMM) 1.6 Absolute Monocytes (0.10 - 0.60 /CUMM) 0.3 Absolute Eosinophils (0.0 - 0.7 /CUMM) 0.1 Absolute Basophils (0.0 - 0.2 /CUMM) 0.1 PUBS MCHC (33.0 - 37.0 G/DL) 32.2 L
[2017-06-20 14:46] VITALS: BP 116/64
--- NOTE | 2017-06-20 15:29 | PN- Cardiology ---
Subjective Subjective: Doing well. No new cardiac symptoms. Objective Vital Signs and I&Os Vital Signs Date Time Temp Pulse Resp B/P B/P Pulse O2 O2 Flow FiO2 Mean Ox Delivery Rate 06/20 1446 98.5 85 20 116/64 98 Room Air 06/20 0916 96 118/66 06/20 0800 97 Room Air 06/20 0709 98.6 87 18 118/66 97 Room Air 06/19 2232 98.8 82 20 120/62 97 Room Air Intake & Output 06/20 1600 06/20 0800 06/20 0000 06/19 1600 06/19 0806/19 0000 Intake Total 860 360 680 880 820 Output Total 600 650 240 Balance 860 360 80 880 170 -240 Intake, Blood 700 Product Intake, Oral 860 360 680 880 120 Output, Urine 600 650 240 Patient 140 lb Weight Weight Reported by Patient Measurement Method Physical Exam: General Appearance Alert, Oriented X3, Cooperative, No Acute Distress, Pale Skin normal HEENT Atraumatic, PERRLA, EOMI, Mucous Membr. moist/pink, Pale Conjucntiva Neck Supple, No JVD, No thryomegaly, carotids normal bilaterally Lungs Clear to Auscultation and percussion bilaterally Abdomen Normal Bowel Sounds, Soft, No Tenderness, Urostomy Tube Intact with clear urine Neurological Normal / nonfocal Extremities No Clubbing, No Cyanosis, No Edema, Normal Pulses Current Medications: Current Medications Sig/Michelle Start time Last Medication Dose Route Stop Time Status Admin Acetaminophen 650 MG Q6P PRN 06/18 2330 AC PO Citalopram 40 MG DAILY 06/19 1000 AC 06/20 Hydrobromide PO 0916 Losartan Potassium 50 MG DAILY 06/19 1000 AC 06/20 PO 0916 Omeprazole 40 MG DAILY AC 06/19 0700 AC 06/20 PO 0737 Results Last 48 Hrs of Labs/Mics: Laboratory Tests 06/20/17 1430: Troponin I Pending 06/20/17 0705: Anion Gap 10, Estimated GFR > 60, BUN/Creatinine Ratio 23.3, CBC w Diff NO MAN DIFF REQ, RBC 3.42 L, MCV 79.3 L, MCH 26.2 L, RDW 16.0 H, MPV 6.9 L, Gran % 52.8, Lymphocytes % 33.8, Monocytes % 7.5, Eosinophils % 4.4, Basophils % 1.5, Absolute Granulocytes 2.0, Absolute Lymphocytes 1.3, Absolute Monocytes 0.3, Absolute Eosinophils 0.2, Absolute Basophils 0.1, PUBS MCHC 33.0 06/19/17 0820: Troponin I Cancelled 06/19/17 0820: Anion Gap 11, Estimated GFR > 60, BUN/Creatinine Ratio 25.6 H, Iron 86, TIBC 447, Ferritin 5.4 L, Troponin I 0.20 *H, Vitamin B12 485, Folate 13.3, TSH 3.760, CBC w Diff NO MAN DIFF REQ, RBC 3.49 L, MCV 80.1 L, MCH 26.5 L, RDW 16.6 H, MPV 6.7 L, Gran % 61.2, Lymphocytes % 27.8, Monocytes % 5.8, Eosinophils % 3.9, Basophils % 1.3, Absolute Granulocytes 2.5, Absolute Lymphocytes 1.1 L, Absolute Monocytes 0.2, Absolute Eosinophils 0.2, Absolute Basophils 0.1, PUBS MCHC 33.0, Retic Count 1.30 06/19/17 0810: Troponin I Cancelled 06/19/17 0210: Troponin I 0.21 *H 06/18/172021: PT 10.5, INR 1.00, APTT 28 06/18/17 1940: Anion Gap 13, Estimated GFR > 60, BUN/Creatinine Ratio 32.2 H, Glucose 112 H, Calcium 9.5, Total Bilirubin < 0.1 L, AST 18, ALT 27, Alkaline Phosphatase 71, Troponin I 0.11 *H, Total Protein 6.5, Albumin 3.8, Globulin 2.7, Albumin/ Globulin Ratio 1.4, CBC w Diff NO MAN DIFF REQ, RBC 2.54 L, MCV 75.7 L, MCH 24.4 L, RDW 14.7 H, MPV 6.8 L, Gran % 57.1, Lymphocytes % 33.1, Monocytes % 5.6, Eosinophils % 3.0, Basophils % 1.2, Absolute Granulocytes 2.7, Absolute Lymphocytes 1.6, Absolute Monocytes 0.3, Absolute Eosinophils 0.1, Absolute Basophils 0.1, PUBS MCHC 32.2 L Assessment/Plan Assessment/Plan Assessment: 1. Minimally elevated troponin consistent with type II NC 2. Acute on chronic symptomatic anemia with guaiac positive stool and recent chemotherapy 3. Stage IV bladder cancer currently on chemotherapy 4. Hypertension Recommendations: -Keep the patient on rectifying operator for now -Echocardiogram was essentially normal with normal left ventricular function and no sick and valvular disease -Consider hematology/oncology input -GI input noted -Further plans after above. -For now, no further cardiac evaluation indicated. At some point, depending upon the patient's clinical course, an outpatient pharmacologic nuclear stress test may be useful at some point. Continue telemetry? Yes
--- NOTE | 2017-06-20 19:58 | Patient Discharge Instructions ---
Discharge Instructions General Discharge Information You were seen/treated for: you were seen here for GI bleed of unknown origin. You had heart strain becaise of it. Special Instructions: please follow up with PCP and GI doctor at [place] for GI bleed,as early as possible. Please avoid NSAIDs. Diet Recommended Diet: Heart Healthy Acute Coronary Syndrome Inclusion Criteria At DC or during hospital stay patient has or had the following: ACS DIAGNOSIS Yes Discharge Core Measures Meds if any: Prescribed or Continued at Discharge KRISTOPHER/ARB if EF <40% Yes Meds if any: NOT Prescribed or Continued at Discharge Congestive Heart Failure Inclusion Criteria At DC or during hospital stay patient has or had the following: CHF DIAGNOSIS No Discharge Core Measures Meds if any: Prescribed or Continued at Discharge Meds if any: NOT Prescribed or Continued at Discharge Cerebrovascular accident Inclusion Criteria At DC or during hospital stay patient has or had the following: CVA/TIA Diagnosis No Discharge Core Measures Meds if any: Prescribed or Continued at Discharge Meds if any: NOT Prescribed or Continued at Discharge Venous thromboembolism Inclusion Criteria VTE Diagnosis No VTE Type NONE VTE Confirmed by (Test) NONE Discharge Core Measures - Per Current guidelines, there needs to be overlap - treatment for the first 5 days of Warfarin therapy. - If discharged on Warfarin prior to 5 days of - overlap therapy, the patient will need to be - assessed for post discharge needs including - *Post discharge parental anticoagulation - *Warfarin and/or parental anticoagulation education - *Follow up date to check INR post discharge At least 5 days overlap therapy as Inpatient No Meds if any: Prescribed or Continued at Discharge Warfarin No Note: Overlap Therapy is Warfarin and Anticoagulant Meds if any: NOT Prescribed or Continued at Discharge
[2017-06-20 22:16] VITALS: BP 110/62
[2017-06-21 06:24] VITALS: BP 120/64
--- NOTE | 2017-06-21 07:23 | PN- Housestaff ---
Becky KOENIG,Izzy 06/21/17 0722: Subjective Follow-up For: Follow-up acute on chronic anemia. Type II DE. Stage IV bladder cancer, status postchemotherapy Complaints: no complaints Tele-Events Since Last Visit: No overnight events Subjective: Patient is seen and examined at the bedside. She denies for any active complaints. She denies any chest pain, shortness of breath, palpitation, diarrhea. She had one bowel movement overnight, which was positive for bright red blood. She want to continue her care at [facility]. Review of Systems Constitutional: Denies: no symptoms. Objective Last 24 Hrs of Vital Signs/I&O Vital Signs Date Time Temp Pulse Resp B/P B/P Pulse O2 O2 Flow FiO2 Mean Ox Delivery Rate 06/21 0839 85 132/60 06/21 0624 98.7 85 20 120/64 98 Room Air 06/20 2216 98.0 87 20 110/62 98 Room Air Intake & Output 06/21 1600 06/21 0800 06/21 0000 Intake Total 360 840 Output Total 400 450 Balance -40 390 Intake, Oral 360 840 Output, Urine 400 450 Physical Exam General Appearance: Alert, Oriented X3, Cooperative, No Acute Distress Cardiovascular: Normal S1, Normal S2 Lungs: Clear to Auscultation, Normal Air Movement Abdomen: Soft, No Tenderness Extremities: No Clubbing, No Cyanosis, No Edema Vascular: Normal Pulses, Pulses Symmetrical Current Medications: Current Medications Sig/Michelle Start time Last Medication Dose Route Stop Time Status Admin Acetaminophen 650 MG Q6P PRN 06/18 2330 DCD PO Citalopram 40 MG DAILY 06/19 1000 DCD 06/21 Hydrobromide PO 0839 Losartan Potassium 50 MG DAILY 06/19 1000 DCD 06/21 PO 0839 Omeprazole 40 MG DAILY AC 06/19 0700 DCD 06/21 PO 0531 Last 24 Hrs of Lab/John Results Last 24 Hrs of Labs/Mics: Laboratory Tests 06/21/17 0700: Anion Gap 11, Estimated GFR > 60, BUN/Creatinine Ratio 22.2, CBC w Diff NO MAN DIFF REQ, RBC 3.41 L, MCV 79.1 L, MCH 25.6 L, RDW 16.3 H, MPV 7.7, Gran % 62.6, Lymphocytes % 26.3, Monocytes % 5.9, Eosinophils % 4.1, Basophils % 1.1, Absolute Granulocytes 2.8, Absolute Lymphocytes 1.2, Absolute Monocytes 0.3, Absolute Eosinophils 0.2, Absolute Basophils 0, PUBS MCHC 32.4 L Assessment/Plan Assessment: Ms. Nicolas is 61-year-old lady with past medical history significant for hypertension, osteoarthritis, anxiety/depression and metastatic bladder cancer( status post bladder resection in 2017, currently undergoing chemotherapy) presents with exertional shortness of breath and palpitations found to have Hb 6.2. Assessment and plan - GI bleed under evaluation leading to symptomatic anemia, type II DE. * She denies for any active bleeding now. * Her hemoglobin has been stabilized 8.7. * She want to get discharge and follow-up [facility] for further evaluation and management. * We discharge her today with a referal to [facility].We advised if she will have GI bleed again than come back to [place] [facility] or go to [facility]. We advised to avoid aspirin till they r/o the cause of GI bleed. * We continued all her home medication. Code status - FC Problem List: 1. Elevated troponin 2. GI bleed 3. Symptomatic anemia Pain Ratin Pain Location: n/a Pain Goal: Remain pain free Pain Plan: n/a Tomorrow's Labs & Rationales: n/a DVT/Prophylaxis: n/a Davis KOENIG,Cayden 06/21/17 1258: Attending MD Review Statement Attending Statement Attending MD Statement: examined this patient, discuss w/resident/PA/[employer]OCIATE, agreed w/resident/PA/[employer]OCIATE, discussed with family, reviewed EMR data (avail), discussed with nursing, discussed with case mgmt, amended to note Attending Assessment/Plan: Patient seen and examined. Resting comfortably in acute distress. No issues overnight. No events on electronic device monitor. Denies chest pain or shortness of breath. Denies palpitations. Hemoglobin level is 8.7 today down slightly from 8.9 this morning. No evidence of any massive GI bleeding occurring at present. Patient remains adamant about continuing her care at [facility]. She will be discharged home today and has been advised to follow-up with her oncologist service at [facility] for referral for endoscopy evaluation. She has been advised to return to emergency room if she notices bright red blood per rectum, develops dizziness or lightheadedness, develops chest pain or worsening malaise. She verbalized understanding. She has been advised to stop taking aspirin until she has been evaluated endoscopically.
--- NOTE | 2017-06-21 07:57 | ECHOCARDIOGRAM REPORT ---
TRAVIS MCLEOD Age: 61 : 1955 Gender: F Exam Date: 06/20/2017 10:51 Exam Location: 1 [address] Ht (in): 63 Wt (lb): 140 BSA: 1.69 BP: 118 / 66 Ordering Physician: Camille Henley MD Referring Physician: Juno Valdes MD Technologist: Taisha Dailey [facility] Room Number: 187 Indications: SHORTNESS OF BREATH Rhythm: Sinus Technical Quality: Fair FINDINGS Left Ventricle Normal size left ventricle. No obvious regional wall motion abnormalities. Normal left ventricular ejection fraction estimated at 60-65%. Right Ventricle Normal right ventricular size and function. Right Atrium Normal right atrial size. Left Atrium Normal left atrial size. Mitral Valve Mitral valve thickened. Trace mitral regurgitation. Aortic Valve Trileaflet aortic valve. Focal thickening of the aortic valve cusps. No aortic stenosis. No aortic regurgitation. Tricuspid Valve Tricuspid valve not well visualized, grossly normal. Pulmonic Valve Structurally normal pulmonic valve. Trace pulmonic regurgitation. Pericardium Minimal pericardial effusion (normal variant). Great Vessels Normal size aortic root and proximal ascending aorta. CONCLUSIONS 1. Minimal aortic sclerosis is present with no valvular stenosis or insufficiency. 2. Mitral leaflet thickening is present with minimal mitral insufficiency but no evidence of mitral valve prolapse. 3. A physiologic pericardial effusion is present which is hemodynamically insignificant. 4. The left ventricular chamber size is normal with mild left ventricular hypertrophy and disproportionate thickening of the upper septum. The ejection fraction is normal with no visible resting wall motion abnormalities. 5. Minimal pulmonic insufficiency is present. The right ventricular systolic pressure cannot be assessed on this study. 6. Lipomatous atrial septal hypertrophy is present. 7. No prior study was available for comparison. Juno Valdes M.D. (Electronically Signed) Final Date: 21 June 2017 07:57 MEASUREMENTS (Male / Female) Normal Values 2D ECHO LV Diastolic Diameter PLAX 3.1 cm 4.2 - 5.9 / 3.9 - 5.3 cm LV Systolic Diameter PLAX 1.9 cm 2.1 - 4.0 cm LV Fractional Shortening PLAX 38.7 % 25 - 46 % LV Ejection Fraction 2D Teich 70.6 % IVS Diastolic Thickness 1.4 cm LVPW Diastolic Thickness 1.4 cm LV Relative Wall Thickness 0.9 RV Internal Dim ED PLAX 2.6 cm 1.9 - 3.8 cm LVOT Diameter 2.0 cm Aortic Root Diameter 2.7 cm LA Systolic Diameter LX 3.6 cm 3.0 - 4.0 / 2.7 - 3.8 cm LA Volume 21.0 cm 18 - 58 / 22 - 52 cm Ascending Aorta Diameter 2.8 cm DOPPLER AV Peak Velocity 170.0 cm/s AV Peak Gradient 11.6 mmHg AV Mean Velocity 119.0 cm/s AV Mean Gradient 6.0 mmHg AV Velocity Time Integral 38.7 cm LVOT Peak Velocity 173.0 cm/s LVOT Peak Gradient 12.0 mmHg LVOT Mean Velocity 115.0 cm/s LVOT Mean Gradient 6.0 mmHg LVOT Velocity Time Integral 33.5 cm LVOT Stroke Volume 105.2 cm AV Area Cont Eq vti 2.7 cm AV Area Cont Eq pk 3.2 cm MV Peak Velocity 89.5 cm/s MV Peak Gradient 3.2 mmHg MV Mean Velocity 59.7 cm/s MV Mean Gradient 2.0 mmHg Mitral E Point Velocity 87.4 cm/s Mitral A Point Velocity 87.4 cm/s Mitral E to A Ratio 1.0 MV PHT Velocity 90.0 cm/s MV Deceleration [place] 397.0 cm/s MV Pressure Half Time 68.0 ms MV Area PHT 3.2 cm MV Deceleration Time 190.0 ms TR Peak Velocity 137.0 cm/s TR Peak Gradient 7.5 mmHg Right Atrial Pressure 5.0 mmHg Pulmonary Artery Systolic Pressu 12.5 mmHg Right Ventricular Systolic Press 12.5 mmHg PV Peak Velocity 102.0 cm/s PV Peak Gradient 4.2 mmHg PV Mean Velocity 63.3 cm/s PV Mean Gradient 2.0 mmHg PV Velocity Time Integral 22.2 cm LV E' Lateral Velocity 9.0 cm/s Mitral E to LV E' Lateral Ratio 9.7 LV E' Septal Velocity 6.0 cm/s Mitral E to LV E' Septal Ratio 14.5
[2017-06-21 08:29] LABS: ABSOLUTE BASOPHIL COUNT 0 /CUMM (0.0-0.2); ABSOLUTE EOSINOPHIL COUNT 0.2 /CUMM (0.0-0.7); ABSOLUTE GRANULOCYTE CT 2.8 /CUMM (1.4-6.5); ABSOLUTE LYMPH COUNT 1.2 /CUMM (1.2-3.4); ABSOLUTE MONOCYTE COUNT 0.3 /CUMM (0.10-0.60); BASOPHIL % 1.1 % (0.0-2.0); EOSINOPHIL % 4.1 % (0-5); GRANULOCYTE % 62.6 % (42.2-75.2); MEAN CORPUSCULAR HGB 25.6 PG (27.0-31.0); MEAN CORPUSCULAR HGB CONC 32.4 G/DL (33.0-37.0); MEAN CORPUSCULAR VOLUME 79.1 FL (81.0-99.0); MEAN PLATELET VOLUME 7.7 FL (7.4-10.4); RBC DISTRIBUTION WIDTH 16.3 % (11.5-14.5); RED BLOOD CELL CT 3.41 /CUMM (4.20-5.40); WHITE BLOOD CELL COUNT 4.4 /CUMM (4.8-10.8)
[2017-06-21 08:39] VITALS: BP 132/60
[2017-06-21 09:33] LABS: PLATELET COUNT 275 /CUMM (130-400)
--- NOTE | 2017-06-21 13:12 | Discharge Summary ---
Visit Information Visit Dates Admission Date: 06/18/17 Discharge Date: 06/21/17 Hospital Course Course Attending Physician: Cayden Cannon MD Primary Care Physician: Racquel Martin APRN [facility] Course: Patient is a 61-year-old female with multiple medical problems presented with chief complaints of gradually progressive shortness of breath on exertion. ED course - Vitals stable except for mild tachycardia. Exam: AAO, in no distress, pallor+, MMM, Neck supple, PERRL, Chest clear, Heart S1S2 regular, systolic murmur+, Abd soft, NT, right urostomy bag+, urine clear. LE: no edema. Labs: WBC 4.7, H/H 6.2 /19.2, microcytic anemia, Plat 406, INR 1.0, BUN 29, glucose 112, trop 0.11. EKG : sius tachycardia, PAC's, LAD, Qtc 465. Rectal exam done in ER: guaiac positive stool. Orthostats were negative.CTA and Pelvis - no PE, bilateral hilar and mediastinal adenopathy, status post urinary ostomy with bladder resection. Acute on chronic anemia due to slow GI bleed (guaiac positive stool),under evaluation leading to Symptomatic anemia and type II FL - At the time of admission, patient's hemoglobin was 6.2/19.2, as her troponins were positive. So we did 2 units of blood transfusion, Afterwards her Hb come back to 9.2.We obtained GI consult who advised for endoscopy and colonoscopy, but patient refused, to undergo the procedure at [facility]. She preferred it to be done at [facility]. We started her on clear liquid diet which she tolerated well. We discharge her with advice to follow-up at [facility], as soon as possible.Advised to avoid aspirin, NSAIDs, untill causes is known. We also advised if she started having bleeding again than she need to come back to [place] ED/or go to [facility] ED.Her Hb at time of discharge was 8.7. Type II FL secondary to severe anemia - We did serial troponins (0.11,0.21,0.20) and EKG.We obtained consult from station baggage agent who advised conservative management and keep hemoglobin more than 8. We obtained the echocardiogram, which showed LVEF of 60%,mild LVH, atrial septal hypertrophy, minimal aortic sclerosis. We advised to follow-up with station baggage agent at [facility] for further treatment. We advised to stop the aspirin, untill ruling out cause of GI bleed. Allergies: Coded Allergies: NO KNOWN ALLERGIES (06/24/16) Disposition Summary Disposition Principal Diagnosis: Acute on chronic anemia due to slow GI bleed (guaiac positive stool),under evaluation leading to Symptomatic anemia Type 2 Myocardial Infarction. Additional Diagnosis: Hypertension. Osteoarthritis. Anxiety/depression. stage 4 bladder cancer (2017) s/p urinary ostomy with bladder resection and recent chemotherapy (FebMay 2017), pulmonary sarcoidosis, Discharge Disposition: home or self care Discharge Instructions General Discharge Information Code Status: Full Code Patient's Diet: Heart healthy diet Patient's Activity: As tolerated Follow-Up Instructions/Appts: Advised to follow-up with PCP within 2 or 3 days for further blood workup to know the hemoglobin level. Advised to go to [facility], for further evaluation of the GI bleed. Advised to avoid aspirin/NSAIDs until the cause of GI bleed has been ruled out. Medications at Discharge Discharge Medications: Stop taking the following medications: Aspirin (Ecotrin*) 81 MG TABLET.DR ORAL DAILY Continue taking these medications: Citalopram Hydrobromide (Citalopram HBr) 40 MG TABLET 1 Tablet ORAL DAILY Qty = 30 Comments: Last Taken: 06/21/17 Time: 0839 Losartan Potassium (Losartan Potassium) 50 MG TABLET 1 Tablet ORAL DAILY Qty = 30 Comments: Last Taken: 06/21/17 Time: 0839 Alprazolam (Alprazolam) 0.5 MG TABLET 1 Tablet ORAL as needed for ANXIETY Qty = 30 Comments: NOT GIVEN IN HOSPITAL Copies To: Elsi KOENIG,Phuc; Keisha KOENIG,David Sotelo; Racquel Martin APRN Attending MD Review Statement Documenting Attending: Cayden Cannon MD Other Findings: Patient will foolow up with her gear hobber at [facility].
== END 2017-06-21 12:31 | DRG 253 ==
LOC: ERH 17:39 → 1NO 21:56 → ERHI 21:56 → ENRESERV 22:36 → 1NO 23:30 → ENTRNSPT 06-21 11:39 → EDTRNSPT 06-21 11:46 → EDTRNSPTSTS 06-21 12:31 → EDTRNSPT 06-21 12:31 → CMPTRNSPT 06-21 12:31 → 1NO 06-21 12:31
PROVIDERS: Internal Medicine Adolescent Medicine; Physician Assistant Medical; Student in an Organized Health Care Education/Training Program
PROC: 30233N1 Transfusion of Nonautologous Red Blood Cells into Peripheral Vein, Percutaneous Approach (ICD-10-PCS; principal; 2017-06-19)
DX: K92.2 Gastrointestinal hemorrhage, unspecified (principal); D62 Acute posthemorrhagic anemia; C67.9 Malignant neoplasm of bladder, unspecified; C78.00 Secondary malignant neoplasm of unspecified lung; I21.A1 Myocardial infarction type 2; D86.0 Sarcoidosis of lung; I10 Essential (primary) hypertension; M19.90 Unspecified osteoarthritis, unspecified site; F32.9 Major depressive disorder, single episode, unspecified; Z92.21 Personal history of antineoplastic chemotherapy
CPT/HCPCS: 1NP; 36415; 74177; 82436; 86920; 93005; 93010; 93306; 99291; P9016